=== PATIENT | female | born 1945 | race Caucasian/White ===

== ENCOUNTER → 2017-06-01 | Outpatient (CLI) | payer MEDICARE, MEDICAID ==
[~2017-06-01] MED LIST: ALPHAGAN P EACHEYE; AMLO5TAB2 PO; ASPI-496 PO; ATOR10TA9 PO; BAYER ASPIRIN PO; BENA10TA2 PO; BENA20TA2 PO; BRIM5DRO3 EACHEYE; CHOL500015 PO; CLOP75TA PO; CLOP75TA52 PO; SITA100T PO; Will bring list DOS; [UNRECOGNIZED DRUG - OTHER] PO; will bring a list
== END | disposition home or self-care (01) ==
LOC: CFH 12:49
PROVIDERS: ATTEND Internal Medicine Nephrology
DX: I12.9 Hypertensive chronic kidney disease with stage 1 through stage 4 chronic kidney disease, or unspecified chronic kidney disease (principal); E11.22 Type 2 diabetes mellitus with diabetic chronic kidney disease; N18.3 Chronic kidney disease, stage 3 (moderate)
CPT/HCPCS: 76770

== ENCOUNTER → 2017-06-02 | Outpatient (CLI) | payer MEDICARE, MEDICAID | END | disposition home or self-care (01) | LOC: CVU 12:26 | PROVIDERS: ATTEND Nurse Practitioner Family | DX: I73.9 Peripheral vascular disease, unspecified (principal); I65.22 Occlusion and stenosis of left carotid artery | CPT/HCPCS: 93880 ==

== ENCOUNTER → 2017-06-06 | Outpatient (CLI) | payer MEDICARE, MEDICAID | END | disposition home or self-care (01) | LOC: CVU 06:34 | PROVIDERS: ATTEND Nurse Practitioner Family | DX: I70.203 Unspecified atherosclerosis of native arteries of extremities, bilateral legs (principal); E11.51 Type 2 diabetes mellitus with diabetic peripheral angiopathy without gangrene; I10 Essential (primary) hypertension; E78.5 Hyperlipidemia, unspecified; Z86.73 Personal history of transient ischemic attack (TIA), and cerebral infarction without residual deficits | CPT/HCPCS: 93925 ==

== ENCOUNTER 2017-06-30 09:22 | Day surgery (SDC) | payer MEDICARE, MEDICAID ==
[2017-06-27 12:04] LABS: BASOPHILS # (AUTO) 0.04 x10^3/uL (0-0.1); BASOPHILS % (AUTO) 1 % (0-1); EOSINOPHILS # (AUTO) 0.35 x10^3/uL (0-0.4); EOSINOPHILS % (AUTO) 4 % (1-7); LYMPHOCYTES % (AUTO) 16 % (22-44); MD NO; MEAN CORPUSCULAR HEMOGLOBIN 28.2 pg (27.0-34.8); MEAN CORPUSCULAR HGB CONC 32.8 g/dL (32.4-35.8); MEAN CORPUSCULAR VOLUME 85.9 fL (80-100); MEAN PLATELET VOLUME 9.6 fL (7.4-10.4); MONOCYTES # (AUTO) 0.64 x10^3/uL (0.2-0.8); MONOCYTES % (AUTO) 7 % (2-9); NEUTROPHILS % (AUTO) 73 % (42-75); PLATELET COUNT 388 x10^3/uL (130-400); RED BLOOD COUNT 4.63 x10^6/uL (3.82-5.3); RED CELL DISTRIBUTION WIDTH 14.7 % (9.6-15.2)
[2017-06-27 12:08] LABS: CALCIUM 9.1 mg/dL (8.5-10.1); CHLORIDE 106 mmol/L (98-107)
[2017-06-27 12:12] LABS: ANION GAP 9 mmol/L (5-15)
[~2017-06-30] VITALS: Ht 160 cm; Wt 62.9 kg
[~2017-06-30 09:22] MED LIST changes: +DIAZ5TAB PO; +FAMO10TA10 PO; +GLYB5TAB3 PO; +LINA5TAB PO
[2017-06-30 10:21] VITALS: BP 133/71
[2017-06-30] MEDS ORDERED: SODIUM CHLORIDE 0.9% 1,000 ML IV SCH (10:30)
[2017-06-30] MEDS ORDERED: LIDOCAINE 2%, 20ML ONE (11:11)
[2017-06-30] MEDS ORDERED: FENTANYL PF 100 MCG/2ML ONE ×2 (11:19)
[2017-06-30] MEDS ORDERED: MIDAZOLAM 1 MG/ML, 2ML ONE (11:19)
[2017-06-30] MEDS ORDERED: FLUMAZENIL 0.1 MG/1 ML, 5ML ONE (11:19)
[2017-06-30] MEDS ORDERED: HEPARIN 1,000 UNITS/ML, 10ML ONE (11:19)
[2017-06-30] MEDS ORDERED: NITROGLYCERIN 5 MG/ML, 10ML ONE (11:19)
[2017-06-30] MEDS ORDERED: NALOXONE 1 MG/ML, 2ML ONE (11:20)
[2017-06-30] MEDS ORDERED: PROTAMINE SULFATE 10 MG/ML, 25ML ONE (11:20)
[2017-06-30] MEDS ORDERED: VISIPAQUE 270 MG/ML, 150ML BOTTLE ONE (12:00)
== END 2017-06-30 15:20 ==
LOC: OUT 09:22
PROVIDERS: ATTEND Internal Medicine Cardiovascular Disease
DX: I70.213 Atherosclerosis of native arteries of extremities with intermittent claudication, bilateral legs (principal); E78.5 Hyperlipidemia, unspecified; E11.9 Type 2 diabetes mellitus without complications; Z79.82 Long term (current) use of aspirin; I10 Essential (primary) hypertension; Z88.6 Allergy status to analgesic agent
CPT/HCPCS: 36415; 37225; 75630; 80048; 82962; 85025; 99156; 99157; C1760; C1769; C1884; C1894; C2623; J1644; J2250; J3010; J3490; J7030; Q9966; J2720; J2310

== ENCOUNTER 2017-07-01 16:13 | Emergency (ER) | payer MEDICARE, MEDICAID ==
[~2017-07-01] VITALS: Ht 157.5 cm; Wt 63.6 kg
[2017-07-01 16:49] LABS: INTERNATIONAL NORMALIZED RATIO 0.93 (0.93-1.1); PROTHROMBIN TIME 9.6 Seconds (9.6-11.5)
[2017-07-01 16:53] LABS: ALANINE AMINOTRANSFERASE 15 U/L (12-78); ALBUMIN 3.4 g/dL (3.4-5.0); ANION GAP 9 mmol/L (5-15); CALCIUM 8.5 mg/dL (8.5-10.1); CHLORIDE 109 mmol/L (98-107); CREATININE 1.27 mg/dL (0.55-1.02)
[2017-07-01 16:55] LABS: ALKALINE PHOSPHATASE 96 U/L (45-117); BILIRUBIN,TOTAL 0.2 mg/dL (0.2-1.0); TOTAL PROTEIN 7.3 g/dL (6.4-8.2)
[2017-07-01 17:03] LABS: BASOPHILS # (AUTO) 0.05 x10^3/uL (0-0.1); BASOPHILS % (AUTO) 1 % (0-1); EOSINOPHILS # (AUTO) 0.42 x10^3/uL (0-0.4); EOSINOPHILS % (AUTO) 5 % (1-7); LYMPHOCYTES # (AUTO) 2.07 x10^3/uL (1-3.4); LYMPHOCYTES % (AUTO) 23 % (22-44); MD NO; MEAN CORPUSCULAR HEMOGLOBIN 27.9 pg (27.0-34.8); MEAN CORPUSCULAR HGB CONC 32.8 g/dL (32.4-35.8); MEAN PLATELET VOLUME 9.3 fL (7.4-10.4); MONOCYTES # (AUTO) 0.67 x10^3/uL (0.2-0.8); MONOCYTES % (AUTO) 7 % (2-9); NEUTROPHILS % (AUTO) 65 % (42-75); PLATELET COUNT 347 x10^3/uL (130-400); RED BLOOD COUNT 4.21 x10^6/uL (3.82-5.3); RED CELL DISTRIBUTION WIDTH 14.8 % (9.6-15.2)
[2017-07-01 19:18] VITALS: BP 105/57
== END 2017-07-01 19:20 | disposition home or self-care (01) ==
LOC: ED 18:14
DX: I73.9 Peripheral vascular disease, unspecified (principal)
CPT/HCPCS: 36415; 80053; 85025; 85610; 93922; 99285

== ENCOUNTER 2017-07-28 10:05 | Day surgery (SDC) | payer MEDICARE, MEDICAID ==
[2017-07-26 11:46] LABS: BASOPHILS # (AUTO) 0.04 x10^3/uL (0-0.1); BASOPHILS % (AUTO) 1 % (0-1); EOSINOPHILS # (AUTO) 0.25 x10^3/uL (0-0.4); EOSINOPHILS % (AUTO) 3 % (1-7); LYMPHOCYTES # (AUTO) 1.78 x10^3/uL (1-3.4); LYMPHOCYTES % (AUTO) 23 % (22-44); MD NO; MEAN CORPUSCULAR HEMOGLOBIN 28.6 pg (27.0-34.8); MEAN CORPUSCULAR HGB CONC 33.1 g/dL (32.4-35.8); MEAN CORPUSCULAR VOLUME 86.5 fL (80-100); MEAN PLATELET VOLUME 8.9 fL (7.4-10.4); MONOCYTES # (AUTO) 0.48 x10^3/uL (0.2-0.8); MONOCYTES % (AUTO) 6 % (2-9); NEUTROPHILS # (AUTO) 5.18 x10^3/uL (1.8-6.8); NEUTROPHILS % (AUTO) 67 % (42-75); PLATELET COUNT 380 x10^3/uL (130-400); RED BLOOD COUNT 4.35 x10^6/uL (3.82-5.3); RED CELL DISTRIBUTION WIDTH 15.2 % (9.6-15.2)
[2017-07-26 11:59] LABS: ANION GAP 7 mmol/L (5-15); CHLORIDE 107 mmol/L (98-107); CREATININE 1.36 mg/dL (0.55-1.02)
[~2017-07-28] VITALS: Ht 157.5 cm; Wt 64.4 kg
[2017-07-28] MEDS ORDERED: SODIUM CHLORIDE 0.9% 1,000 ML IV SCH (10:32)
[2017-07-28 11:08] VITALS: BP 145/75
[2017-07-28] MEDS ORDERED: LIDOCAINE 2%, 20ML ONE (12:16)
[2017-07-28] MEDS ORDERED: VISIPAQUE 270 MG/ML, 50ML BOTTLE ONE (12:30)
[2017-07-28] MEDS ORDERED: NITROGLYCERIN 5 MG/ML, 10ML ONE (12:41)
[2017-07-28] MEDS ORDERED: NALOXONE 1 MG/ML, 2ML ONE (12:41)
[2017-07-28] MEDS ORDERED: HEPARIN 1,000 UNITS/ML, 10ML ONE (12:41)
[2017-07-28] MEDS ORDERED: PROTAMINE SULFATE 10 MG/ML, 25ML ONE (12:41)
[2017-07-28] MEDS ORDERED: FENTANYL PF 100 MCG/2ML ONE (12:41)
[2017-07-28] MEDS ORDERED: MIDAZOLAM 1 MG/ML, 5ML ONE (12:41)
[2017-07-28] MEDS ORDERED: FLUMAZENIL 0.1 MG/1 ML, 5ML ONE (12:41)
[2017-07-28] MEDS ORDERED: hydrALAzine 20 MG/ML, 1ML ONE (13:33)
== END 2017-07-28 17:00 ==
LOC: OUT 10:05
PROVIDERS: ATTEND Internal Medicine Cardiovascular Disease
DX: I70.213 Atherosclerosis of native arteries of extremities with intermittent claudication, bilateral legs (principal); E78.5 Hyperlipidemia, unspecified; E11.9 Type 2 diabetes mellitus without complications; Z88.5 Allergy status to narcotic agent; Z79.82 Long term (current) use of aspirin
CPT/HCPCS: 36415; 37225; 75710; 80048; 82962; 85025; 99156; 99157; C1714; C1760; C1769; C1884; C1894; C2623; J0360; J1644; J2250; J3010; J3490; J7030; Q9966; J2720; J2310

== ENCOUNTER 2017-08-24 08:37 | Emergency (ER) | payer MEDICARE, MEDICAID ==
[~2017-08-24] VITALS: Ht 160 cm; Wt 62.3 kg
[2017-08-24 10:59] VITALS: BP 154/68
== END 2017-08-24 12:06 | disposition home or self-care (01) ==
LOC: ED 11:15
DX: S16.1XXA Strain of muscle, fascia and tendon at neck level, initial encounter (principal); S00.83XA Contusion of other part of head, initial encounter; S00.33XA Contusion of nose, initial encounter; S00.11XA Contusion of right eyelid and periocular area, initial encounter; W01.0XXA Fall on same level from slipping, tripping and stumbling without subsequent striking against object, initial encounter; I10 Essential (primary) hypertension; Z85.9 Personal history of malignant neoplasm, unspecified; I73.9 Peripheral vascular disease, unspecified; Y93.89 Activity, other specified; Y92.098 Other place in other non-institutional residence as the place of occurrence of the external cause; Y99.8 Other external cause status
CPT/HCPCS: 70450; 70486; 72125; 99284

== ENCOUNTER → 2018-01-04 | Outpatient (CLI) | payer MEDICARE, MEDICAID ==
[~2018-01-04] MED LIST changes: -BENA10TA2 PO; +BENA10TA4 PO; -BENA20TA2 PO; +BENA20TA4 PO
== END | disposition home or self-care (01) ==
LOC: RAD 09:45
PROVIDERS: ATTEND Physician Assistant Medical
DX: I63.9 Cerebral infarction, unspecified (principal); G31.9 Degenerative disease of nervous system, unspecified; I67.82 Cerebral ischemia; R90.82 White matter disease, unspecified; Z88.5 Allergy status to narcotic agent
CPT/HCPCS: 70551

== ENCOUNTER 2018-01-16 02:34 | Inpatient (IN) | payer MEDICARE, MEDICAID ==
[~2018-01-16] VITALS: Ht 157.5 cm; Wt 63.9 kg
[~2018-01-16 02:34] MED LIST changes: -AMLO5TAB2 PO; +AMLO5TAB7 PO
[2018-01-16] MEDS ORDERED: ATOR40TA PO (03:04)
[2018-01-16] MEDS ORDERED: ALBUTEROL SULFATE 2.5 MG/3 ML ONE (03:22)
[2018-01-16] MEDS ORDERED: SODIUM CHLORIDE FLUSH 10ML SYR IVF ONE (03:30)
[2018-01-16] MEDS ORDERED: ALBUTEROL SULFATE 2.5 MG/3 ML NPPB ONE (03:30)
[2018-01-16 03:31] LABS: MEAN CORPUSCULAR HEMOGLOBIN 28.1 pg (27.0-34.8); MEAN CORPUSCULAR HGB CONC 33.5 g/dL (32.4-35.8); MEAN CORPUSCULAR VOLUME 83.9 fL (80-100); MEAN PLATELET VOLUME 8.8 fL (7.4-10.4); PLATELET COUNT 381 x10^3/uL (130-400); RED BLOOD COUNT 4.51 x10^6/uL (3.82-5.3); RED CELL DISTRIBUTION WIDTH 15.4 % (9.6-15.2)
[2018-01-16 03:42] LABS: ALANINE AMINOTRANSFERASE 19 U/L (12-78); ALBUMIN 3.7 g/dL (3.4-5.0); ANION GAP 6 mmol/L (5-15); CALCIUM 9.2 mg/dL (8.5-10.1); CHLORIDE 104 mmol/L (98-107); CREATININE 1.81 mg/dL (0.55-1.02)
[2018-01-16 03:47] LABS: ALKALINE PHOSPHATASE 118 U/L (45-117); BILIRUBIN,TOTAL 0.4 mg/dL (0.2-1.0); TROPONIN I < 0.015 ng/mL (0.000-0.045)
[2018-01-16 03:59] LABS: MD YES
[2018-01-16] MEDS ORDERED: SODIUM CHLORIDE 0.9% 1,000ML IVBOLUS ONE (04:00)
[2018-01-16 04:02] LABS: <PLATELET ESTIMATE> ADEQUATE; <PLT MORPHOLOGY> NORMAL PLT MORPH; <RBC MORPHOLOGY> NORMAL; BAND#(MANUAL) 0.23 x10^3/uL; BANDS%(MANUAL) 1 % (0-7); EOS#(MANUAL) 0.46 x10^3/uL (0.0-0.4); EOS% (MANUAL) 2 % (1-7); LYMPH#(MANUAL) 0.69 x10^3/uL (1-3.4); LYMPHS% (MANUAL) 3 % (22-44); MONOS#(MANUAL) 0.92 x10^3/uL (0.3-2.7); MONOS% (MANUAL) 4 % (2-9); SEG#(MANUAL) 20.61 x10^3/uL (1.8-6.8); SEGS% (MANUAL) 90 % (42-75)
[2018-01-16] MEDS ORDERED: MORPHINE SULFATE 4 MG/ML, 1ML ONE (04:15)
[2018-01-16] MEDS ORDERED: morphine SULFATE 10 MG/ML, 1ML IVPush ONE (04:30)
[2018-01-16] MEDS ORDERED: AMPICILLIN/SULBACTAM 1,500 MG in SODIUM CHLORIDE 0.9% 50 ML IV SCH (04:30)
[2018-01-16] MEDS: SODIUM CHLORIDE 0.9% 1,000 ML IV SCH ×2 (05:34→08:24)
[2018-01-16 05:35] VITALS: BP 121/61
[2018-01-16 05:38] VITALS: BP 121/61
[2018-01-16 05:40] LABS: MICROSCOPIC AUTO
[2018-01-16 05:41] LABS: CULTURE INDICATED? NO
[2018-01-16] MEDS ORDERED: PROMETHAZINE 25 MG/ML, 1ML IM PRN (06:00)
[2018-01-16] MEDS ORDERED: BISACODYL 10 MG SUPP PR PRN (06:00)
[2018-01-16] MEDS ORDERED: ONDANSETRON 2MG/ML, 2ML IVPush PRN (06:00)
[2018-01-16] MEDS ORDERED: hydrALAzine 20 MG/ML, 1ML IVPush PRN (06:00)
[2018-01-16] MEDS ORDERED: DOCUSATE 100 MG CAPSULE PO PRN (06:00)
[2018-01-16] MEDS ORDERED: OXYcodone IR 5MG TABLET PO PRN (06:00)
[2018-01-16] MEDS ORDERED: ACETAMINOPHEN 325 MG TABLET PO PRN (06:00)
[2018-01-16] MEDS ORDERED: POLYETHYLENE GLYCOL 17 GM PACKET PO PRN (06:00)
[2018-01-16] MEDS ORDERED: ONDANSETRON ODT 4 MG PO PRN (06:00)
[2018-01-16 06:23] LABS: TROPONIN I < 0.015 ng/mL (0.000-0.045)
[2018-01-16 06:45] VITALS: BP 106/54
[2018-01-16] MEDS: BRIMONIDINE TARTRATE OPHTH 0.15%, 5ML EACHEYE SCH (09:00)
[2018-01-16] MEDS: BENAZEPRIL 20 MG TABLET PO SCH (09:00)
[2018-01-16] MEDS: AMLODIPINE 5 MG TABLET PO SCH (09:00)
[2018-01-16 09:04] LABS: MICROSCOPIC NOT IND
[2018-01-16 09:06] LABS: CULTURE INDICATED? NO
[2018-01-16] MEDS: HEPARIN 5,000 UNITS/ML, 1ML SQ SCH ×2 (09:45→17:11)
[2018-01-16 12:19] LABS: TROPONIN I < 0.015 ng/mL (0.000-0.045)
[2018-01-16] MEDS: AMPICILLIN/SULBACTAM 1,500 MG in SODIUM CHLORIDE 0.9% 50 ML IV SCH ×3 (12:46→22:58)
[2018-01-16 13:37] VITALS: BP 110/47
[2018-01-16] MEDS: GABAPENTIN 300 MG CAPSULE PO PRN (14:24)
[2018-01-16] MEDS: CHOLECALCIFEROL 5,000u TAB PO SCH (14:25)
[2018-01-16] MEDS: ASPIRIN 81 MG TABLET CHEW PO SCH (14:25)
[2018-01-16] MEDS: CLOPIDOGREL 75 MG TABLET PO SCH (14:25)
[2018-01-16] MEDS: LINAGLIPTIN 5 MG TAB PO SCH (14:25)
[2018-01-16 18:48] VITALS: BP 112/64
[2018-01-16] MEDS: ATORVASTATIN 40 MG TABLET PO SCH (20:52)
[2018-01-17] MEDS ORDERED: LORazepam 2 MG/ML, 1ML IVPush PRN (00:40)
[2018-01-17] MEDS ORDERED: LORazepam 0.5MG TABLET ONE (00:41)
[2018-01-17] MEDS: LORazepam 0.5MG TABLET PO PRN ×3 (00:42→20:35)
[2018-01-17 01:21] VITALS: BP 133/78
[2018-01-17] MEDS: HEPARIN 5,000 UNITS/ML, 1ML SQ SCH ×3 (02:05→17:33)
[2018-01-17 05:03] LABS: BASOPHILS # (AUTO) 0.03 x10^3/uL (0-0.1); BASOPHILS % (AUTO) 0 % (0-1); EOSINOPHILS % (AUTO) 1 % (1-7); LYMPHOCYTES # (AUTO) 1.32 x10^3/uL (1-3.4); LYMPHOCYTES % (AUTO) 11 % (22-44); MD NO; MEAN CORPUSCULAR HEMOGLOBIN 27.4 pg (27.0-34.8); MEAN CORPUSCULAR HGB CONC 32.5 g/dL (32.4-35.8); MEAN CORPUSCULAR VOLUME 84.4 fL (80-100); MEAN PLATELET VOLUME 8.8 fL (7.4-10.4); MONOCYTES % (AUTO) 9 % (2-9); NEUTROPHILS # (AUTO) 9.57 x10^3/uL (1.8-6.8); NEUTROPHILS % (AUTO) 79 % (42-75); PLATELET COUNT 265 x10^3/uL (130-400); RED BLOOD COUNT 4.01 x10^6/uL (3.82-5.3); RED CELL DISTRIBUTION WIDTH 15.2 % (9.6-15.2)
[2018-01-17] MEDS: AMPICILLIN/SULBACTAM 1,500 MG in SODIUM CHLORIDE 0.9% 50 ML IV SCH ×3 (05:17→18:33)
[2018-01-17 05:18] LABS: ALBUMIN 3.1 g/dL (3.4-5.0); CALCIUM 8.3 mg/dL (8.5-10.1); CHLORIDE 106 mmol/L (98-107)
[2018-01-17 05:22] LABS: ALANINE AMINOTRANSFERASE 18 U/L (12-78); ALKALINE PHOSPHATASE 104 U/L (45-117); ANION GAP 9 mmol/L (5-15); BILIRUBIN,TOTAL 0.5 mg/dL (0.2-1.0); CHOL/HDL RATIO 3.5; CHOLESTEROL, TOTAL 129 mg/dL (140-239); CREATININE 1.21 mg/dL (0.55-1.02); HDL CHOL % 29 % (28-40); HDL CHOLESTEROL (DIRECT) 37 mg/dL (40-60); LDL CHOLESTEROL,CALCULATED 66 mg/dL (54-169); LDL/HDL RATIO 1.8 (0.5-3.0); TOTAL PROTEIN 7.1 g/dL (6.4-8.2); TRIGLYCERIDES 131 mg/dL (50-200); VLDL CHOLESTEROL 26 mg/dL (0-25)
[2018-01-17 07:16] VITALS: BP 105/49
[2018-01-17] MEDS: GABAPENTIN 300 MG CAPSULE PO PRN ×2 (08:13→08:16)
[2018-01-17] MEDS: ASPIRIN 81 MG TABLET CHEW PO SCH (08:15)
[2018-01-17] MEDS: LINAGLIPTIN 5 MG TAB PO SCH (08:15)
[2018-01-17] MEDS: CHOLECALCIFEROL 5,000u TAB PO SCH (08:15)
[2018-01-17] MEDS: CLOPIDOGREL 75 MG TABLET PO SCH (08:15)
[2018-01-17] MEDS: BRIMONIDINE TARTRATE OPHTH 0.15%, 5ML EACHEYE SCH (09:00)
[2018-01-17] MEDS: KETOROLAC 30 MG/1 ML IVPush PRN ×2 (11:27→11:35)
[2018-01-17] MEDS: BENAZEPRIL 20 MG TABLET PO SCH (11:27)
[2018-01-17] MEDS: AMLODIPINE 5 MG TABLET PO SCH (11:27)
[2018-01-17 13:23] VITALS: BP 109/44
[2018-01-17] MEDS: morphine SULFATE 10 MG/ML, 1ML IVPush PRN ×3 (15:50→23:21)
[2018-01-17 18:46] VITALS: BP 136/66
[2018-01-17] MEDS: ATORVASTATIN 40 MG TABLET PO SCH (20:34)
[2018-01-18] MEDS: AMPICILLIN/SULBACTAM 1,500 MG in SODIUM CHLORIDE 0.9% 50 ML IV SCH ×3 (00:05→12:02)
[2018-01-18 01:48] VITALS: BP 130/55
[2018-01-18] MEDS: HEPARIN 5,000 UNITS/ML, 1ML SQ SCH ×3 (02:04→18:27)
[2018-01-18 06:18] LABS: MEAN CORPUSCULAR HEMOGLOBIN 28.2 pg (27.0-34.8); MEAN CORPUSCULAR VOLUME 85.4 fL (80-100); MEAN PLATELET VOLUME 9.4 fL (7.4-10.4); PLATELET COUNT 240 x10^3/uL (130-400); RED BLOOD COUNT 3.91 x10^6/uL (3.82-5.3); RED CELL DISTRIBUTION WIDTH 15.6 % (9.6-15.2)
[2018-01-18 06:22] LABS: ANION GAP 7 mmol/L (5-15); CALCIUM 8.3 mg/dL (8.5-10.1); CHLORIDE 111 mmol/L (98-107); CREATININE 1.35 mg/dL (0.55-1.02)
[2018-01-18 06:38] LABS: MD YES
[2018-01-18 06:40] LABS: <PLATELET ESTIMATE> ADEQUATE; <PLT MORPHOLOGY> NORMAL PLT MORPH; <RBC MORPHOLOGY> NORMAL; BAND#(MANUAL) 2.71 x10^3/uL; BANDS%(MANUAL) 11 % (0-7); LYMPH#(MANUAL) 1.23 x10^3/uL (1-3.4); LYMPHS% (MANUAL) 5 % (22-44); MONOS#(MANUAL) 1.23 x10^3/uL (0.3-2.7); MONOS% (MANUAL) 5 % (2-9); SEG#(MANUAL) 19.43 x10^3/uL (1.8-6.8); SEGS% (MANUAL) 79 % (42-75); TOXIC GRAN 1+
[2018-01-18 07:52] VITALS: BP 103/52
[2018-01-18] MEDS: CHOLECALCIFEROL 5,000u TAB PO SCH (08:41)
[2018-01-18] MEDS: LORazepam 0.5MG TABLET PO PRN ×2 (08:41→20:18)
[2018-01-18] MEDS: ASPIRIN 81 MG TABLET CHEW PO SCH (08:41)
[2018-01-18] MEDS: BRIMONIDINE TARTRATE OPHTH 0.15%, 5ML EACHEYE SCH (08:41)
[2018-01-18] MEDS: CLOPIDOGREL 75 MG TABLET PO SCH (08:41)
[2018-01-18] MEDS: BENAZEPRIL 20 MG TABLET PO SCH (08:42)
[2018-01-18] MEDS: AMLODIPINE 5 MG TABLET PO SCH (08:42)
[2018-01-18] MEDS: INSULIN LISPRO 100 UNITS/ML, PEN SQ-INSULIN SCH ×3 (12:01→21:00)
[2018-01-18 12:47] VITALS: BP 97/46
[2018-01-18] MEDS: morphine SULFATE 10 MG/ML, 1ML IVPush PRN ×2 (14:48→20:55)
[2018-01-18] MEDS: PIPERACILLIN/TAZO/PMX 3.375GM 50 ML IV SCH ×2 (15:31→22:04)
[2018-01-18 19:30] VITALS: BP 96/75
[2018-01-18] MEDS: ATORVASTATIN 40 MG TABLET PO SCH (20:18)
[2018-01-19] MEDS: HEPARIN 5,000 UNITS/ML, 1ML SQ SCH ×3 (02:00→18:00)
[2018-01-19 02:28] VITALS: BP 136/75
[2018-01-19] MEDS: PIPERACILLIN/TAZO/PMX 3.375GM 50 ML IV SCH ×4 (05:01→22:34)
[2018-01-19] MEDS: morphine SULFATE 10 MG/ML, 1ML IVPush PRN (05:11)
[2018-01-19] MEDS: INSULIN LISPRO 100 UNITS/ML, PEN SQ-INSULIN SCH ×4 (07:00→21:00)
[2018-01-19 08:22] LABS: ANION GAP 8 mmol/L (5-15); CALCIUM 8.3 mg/dL (8.5-10.1); CHLORIDE 109 mmol/L (98-107); CREATININE 1.49 mg/dL (0.55-1.02)
[2018-01-19 08:24] LABS: BASOPHILS # (AUTO) 0.01 x10^3/uL (0-0.1); BASOPHILS % (AUTO) 0 % (0-1); EOSINOPHILS # (AUTO) 0.26 x10^3/uL (0-0.4); EOSINOPHILS % (AUTO) 2 % (1-7); LYMPHOCYTES # (AUTO) 1.22 x10^3/uL (1-3.4); LYMPHOCYTES % (AUTO) 7 % (22-44); MD SCAN; MEAN CORPUSCULAR HEMOGLOBIN 28.3 pg (27.0-34.8); MEAN CORPUSCULAR HGB CONC 33.3 g/dL (32.4-35.8); MEAN CORPUSCULAR VOLUME 85.2 fL (80-100); MEAN PLATELET VOLUME 9.1 fL (7.4-10.4); MONOCYTES # (AUTO) 0.98 x10^3/uL (0.2-0.8); MONOCYTES % (AUTO) 5 % (2-9); NEUTROPHILS % (AUTO) 86 % (42-75); PLATELET COUNT 245 x10^3/uL (130-400); RED BLOOD COUNT 3.41 x10^6/uL (3.82-5.3); RED CELL DISTRIBUTION WIDTH 15.4 % (9.6-15.2)
[2018-01-19 09:37] VITALS: BP 128/61
[2018-01-19] MEDS: ASPIRIN 81 MG TABLET CHEW PO SCH (09:41)
[2018-01-19] MEDS: CLOPIDOGREL 75 MG TABLET PO SCH (09:41)
[2018-01-19] MEDS: CHOLECALCIFEROL 5,000u TAB PO SCH (09:42)
[2018-01-19] MEDS: LORazepam 0.5MG TABLET PO PRN (09:42)
[2018-01-19] MEDS: AMLODIPINE 5 MG TABLET PO SCH (09:42)
[2018-01-19] MEDS: BENAZEPRIL 20 MG TABLET PO SCH (09:42)
[2018-01-19] MEDS: BRIMONIDINE TARTRATE OPHTH 0.15%, 5ML EACHEYE SCH (09:43)
[2018-01-19] MEDS ORDERED: SODIUM CHLORIDE 0.9% 1,000 ML IV SCH (13:30)
[2018-01-19 13:55] VITALS: BP 104/63
[2018-01-19] MEDS ORDERED: ALBUTEROL SULFATE 2.5 MG/3 ML NPPB PRN (17:00)
[2018-01-19 17:41] LABS: HEMOGLOBIN A1C 6.8 % (4.2-6.3)
[2018-01-19 19:11] VITALS: BP_SYST 101; BP_SYST 86; BP_DIAS 54; BP_DIAS 57
[2018-01-19] MEDS: GUAIFENESIN ER 600 MG TABLET PO SCH (21:08)
[2018-01-19] MEDS: ATORVASTATIN 40 MG TABLET PO SCH (21:08)
[2018-01-20] MEDS: HEPARIN 5,000 UNITS/ML, 1ML SQ SCH ×3 (02:43→18:00)
[2018-01-20 02:50] VITALS: BP 110/61
[2018-01-20] MEDS: PIPERACILLIN/TAZO/PMX 3.375GM 50 ML IV SCH ×4 (03:37→23:09)
[2018-01-20 05:20] LABS: BASOPHILS # (AUTO) 0.02 x10^3/uL (0-0.1); BASOPHILS % (AUTO) 0 % (0-1); EOSINOPHILS # (AUTO) 0.27 x10^3/uL (0-0.4); EOSINOPHILS % (AUTO) 2 % (1-7); LYMPHOCYTES % (AUTO) 7 % (22-44); MD NO; MEAN CORPUSCULAR HEMOGLOBIN 27.8 pg (27.0-34.8); MEAN CORPUSCULAR HGB CONC 32.5 g/dL (32.4-35.8); MEAN CORPUSCULAR VOLUME 85.5 fL (80-100); MEAN PLATELET VOLUME 9.2 fL (7.4-10.4); MONOCYTES # (AUTO) 1.04 x10^3/uL (0.2-0.8); MONOCYTES % (AUTO) 7 % (2-9); NEUTROPHILS # (AUTO) 13.14 x10^3/uL (1.8-6.8); NEUTROPHILS % (AUTO) 85 % (42-75); PLATELET COUNT 247 x10^3/uL (130-400); RED BLOOD COUNT 3.34 x10^6/uL (3.82-5.3); RED CELL DISTRIBUTION WIDTH 15.2 % (9.6-15.2)
[2018-01-20 05:30] LABS: ANION GAP 7 mmol/L (5-15); CALCIUM 8.4 mg/dL (8.5-10.1); CHLORIDE 108 mmol/L (98-107); CREATININE 1.31 mg/dL (0.55-1.02)
[2018-01-20] MEDS: INSULIN LISPRO 100 UNITS/ML, PEN SQ-INSULIN SCH ×4 (07:00→21:00)
[2018-01-20 07:26] VITALS: BP 96/58
[2018-01-20] MEDS: CLOPIDOGREL 75 MG TABLET PO SCH (08:51)
[2018-01-20] MEDS: GUAIFENESIN ER 600 MG TABLET PO SCH ×2 (08:51→21:00)
[2018-01-20] MEDS: CHOLECALCIFEROL 5,000u TAB PO SCH (08:51)
[2018-01-20] MEDS: AMLODIPINE 5 MG TABLET PO SCH (08:52)
[2018-01-20] MEDS: BENAZEPRIL 20 MG TABLET PO SCH (08:52)
[2018-01-20] MEDS: ASPIRIN 81 MG TABLET CHEW PO SCH (08:52)
[2018-01-20] MEDS: BRIMONIDINE TARTRATE OPHTH 0.15%, 5ML EACHEYE SCH (09:00)
[2018-01-20] MEDS ORDERED: SODIUM CHLORIDE 0.9%, 500ML IVBOLUS ONE (10:00)
[2018-01-20 13:09] VITALS: BP 121/66
[2018-01-20] MEDS ORDERED: DEXTROSE 50%, 50ML SYRINGE ONE (15:51)
[2018-01-20] MEDS ORDERED: DEXTROSE 50%, 50ML SYRINGE IVPush ONE (16:00)
[2018-01-20] MEDS ORDERED: ZIPRASIDONE 20 MG INJ IM ONE ×2 (19:17→19:30)
[2018-01-20] MEDS ORDERED: DEXTROSE 4 GM TAB.CHEW PO PRN (20:00)
[2018-01-20] MEDS ORDERED: DEXTROSE 50%, 50ML SYRINGE IVPush PRN (20:00)
[2018-01-20] MEDS ORDERED: GLUCAGON 1 MG IM PRN (20:00)
[2018-01-20] MEDS: SODIUM CHLORIDE FLUSH 10ML SYR IVF SCH (21:00)
[2018-01-20] MEDS: ATORVASTATIN 40 MG TABLET PO SCH (21:00)
[2018-01-20] MEDS: DEXTROSE 10% 1,000 ML IV SCH (21:23)
[2018-01-20 21:31] VITALS: BP 118/68
[2018-01-20] MEDS ORDERED: ACETAMINOPHEN 325 MG TABLET PO PRN (22:00)
[2018-01-20] MEDS: DIAZEPAM 5 MG/ML, 2ML IV PRN (23:44)
[2018-01-21] MEDS: HEPARIN 5,000 UNITS/ML, 1ML SQ SCH ×3 (01:58→17:17)
[2018-01-21] MEDS: PIPERACILLIN/TAZO/PMX 3.375GM 50 ML IV SCH ×4 (04:54→23:36)
[2018-01-21 06:58] VITALS: BP 92/54
[2018-01-21] MEDS: INSULIN LISPRO 100 UNITS/ML, PEN SQ-INSULIN SCH ×4 (07:00→21:00)
[2018-01-21] MEDS: ASPIRIN 81 MG TABLET CHEW PO SCH ×2 (09:00→10:49)
[2018-01-21] MEDS: AMLODIPINE 5 MG TABLET PO SCH ×2 (09:00→10:49)
[2018-01-21] MEDS: BRIMONIDINE TARTRATE OPHTH 0.15%, 5ML EACHEYE SCH (09:00)
[2018-01-21] MEDS: CLOPIDOGREL 75 MG TABLET PO SCH ×2 (09:00→10:49)
[2018-01-21] MEDS: CHOLECALCIFEROL 5,000u TAB PO SCH ×2 (09:00→10:49)
[2018-01-21] MEDS: BENAZEPRIL 20 MG TABLET PO SCH ×2 (09:00→10:49)
[2018-01-21] MEDS: DEXTROSE 10% 1,000 ML IV SCH ×2 (10:00→23:36)
[2018-01-21] MEDS: DIAZEPAM 5 MG/ML, 2ML IV PRN ×2 (10:46→17:16)
[2018-01-21] MEDS: GUAIFENESIN ER 600 MG TABLET PO SCH ×2 (10:49→21:00)
[2018-01-21] MEDS: SODIUM CHLORIDE FLUSH 10ML SYR IVF SCH ×2 (10:51→21:00)
[2018-01-21] MEDS: LINEZOLID PMX 600MG/300ML 300 ML IV SCH (12:01)
[2018-01-21 14:08] VITALS: BP 105/62
[2018-01-21 20:29] VITALS: BP 118/68
[2018-01-21] MEDS: ATORVASTATIN 40 MG TABLET PO SCH (21:00)
[2018-01-22] MEDS: LINEZOLID PMX 600MG/300ML 300 ML IV SCH ×2 (00:57→12:48)
[2018-01-22] MEDS: HEPARIN 5,000 UNITS/ML, 1ML SQ SCH ×3 (02:00→17:12)
[2018-01-22 02:47] VITALS: BP 100/60
[2018-01-22] MEDS: PIPERACILLIN/TAZO/PMX 3.375GM 50 ML IV SCH ×4 (05:45→23:47)
[2018-01-22 06:50] VITALS: BP 103/57
[2018-01-22] MEDS: BRIMONIDINE TARTRATE OPHTH 0.15%, 5ML EACHEYE SCH (09:00)
[2018-01-22] MEDS: SODIUM CHLORIDE FLUSH 10ML SYR IVF SCH ×2 (09:00→21:10)
[2018-01-22] MEDS: BENAZEPRIL 20 MG TABLET PO SCH (09:11)
[2018-01-22] MEDS: AMLODIPINE 5 MG TABLET PO SCH (09:12)
[2018-01-22] MEDS: GUAIFENESIN ER 600 MG TABLET PO SCH ×2 (09:12→21:10)
[2018-01-22] MEDS: CLOPIDOGREL 75 MG TABLET PO SCH (09:12)
[2018-01-22] MEDS: CHOLECALCIFEROL 5,000u TAB PO SCH (09:12)
[2018-01-22] MEDS: ASPIRIN 81 MG TABLET CHEW PO SCH (09:17)
[2018-01-22 12:09] VITALS: BP 83/40
[2018-01-22] MEDS ORDERED: SODIUM CHLORIDE 0.9%, 500ML IVBOLUS ONE (12:30)
[2018-01-22] MEDS: DEXTROSE 10% 1,000 ML IV SCH (12:49)
[2018-01-22 14:24] VITALS: BP 94/59
[2018-01-22 20:47] VITALS: BP 102/48
[2018-01-22] MEDS: ATORVASTATIN 40 MG TABLET PO SCH (21:09)
[2018-01-23 00:44] VITALS: BP 124/60
[2018-01-23] MEDS: LINEZOLID PMX 600MG/300ML 300 ML IV SCH ×2 (00:53→11:30)
[2018-01-23] MEDS: HEPARIN 5,000 UNITS/ML, 1ML SQ SCH ×3 (02:00→16:54)
[2018-01-23] MEDS: PIPERACILLIN/TAZO/PMX 3.375GM 50 ML IV SCH ×4 (05:06→23:02)
[2018-01-23] MEDS: DEXTROSE 10% 1,000 ML IV SCH (05:06)
[2018-01-23 06:44] VITALS: BP 121/49
[2018-01-23] MEDS: SODIUM CHLORIDE FLUSH 10ML SYR IVF SCH ×2 (09:00→20:59)
[2018-01-23] MEDS: CHOLECALCIFEROL 5,000u TAB PO SCH (09:15)
[2018-01-23] MEDS: ASPIRIN 81 MG TABLET CHEW PO SCH (09:15)
[2018-01-23] MEDS: AMLODIPINE 5 MG TABLET PO SCH (09:15)
[2018-01-23] MEDS: BENAZEPRIL 20 MG TABLET PO SCH (09:15)
[2018-01-23] MEDS: GUAIFENESIN ER 600 MG TABLET PO SCH ×2 (09:15→20:59)
[2018-01-23] MEDS: CLOPIDOGREL 75 MG TABLET PO SCH (09:15)
[2018-01-23] MEDS: BRIMONIDINE TARTRATE OPHTH 0.15%, 5ML EACHEYE SCH (09:19)
[2018-01-23 10:50] LABS: CLOSTRIDIUM DIFFICILE ANTIGEN NEGATIVE; CLOSTRIDIUM DIFFICILE TOXIN NEGATIVE (Negative)
[2018-01-23 12:01] VITALS: BP 121/61
[2018-01-23 20:29] VITALS: BP 140/70
[2018-01-23] MEDS: ATORVASTATIN 40 MG TABLET PO SCH (20:59)
[2018-01-24 00:11] VITALS: BP 148/64
[2018-01-24] MEDS: LINEZOLID PMX 600MG/300ML 300 ML IV SCH ×2 (00:37→11:41)
[2018-01-24] MEDS: HEPARIN 5,000 UNITS/ML, 1ML SQ SCH ×3 (02:01→17:18)
[2018-01-24 05:11] LABS: BASOPHILS # (AUTO) 0.06 x10^3/uL (0-0.1); BASOPHILS % (AUTO) 1 % (0-1); EOSINOPHILS # (AUTO) 0.32 x10^3/uL (0-0.4); EOSINOPHILS % (AUTO) 3 % (1-7); LYMPHOCYTES # (AUTO) 1.18 x10^3/uL (1-3.4); LYMPHOCYTES % (AUTO) 13 % (22-44); MD NO; MEAN CORPUSCULAR HGB CONC 32.7 g/dL (32.4-35.8); MEAN CORPUSCULAR VOLUME 85.7 fL (80-100); MEAN PLATELET VOLUME 8.8 fL (7.4-10.4); MONOCYTES # (AUTO) 0.61 x10^3/uL (0.2-0.8); MONOCYTES % (AUTO) 7 % (2-9); NEUTROPHILS # (AUTO) 7.25 x10^3/uL (1.8-6.8); NEUTROPHILS % (AUTO) 77 % (42-75); PLATELET COUNT 397 x10^3/uL (130-400); RED BLOOD COUNT 3.42 x10^6/uL (3.82-5.3); RED CELL DISTRIBUTION WIDTH 14.4 % (9.6-15.2)
[2018-01-24 05:13] LABS: CHLORIDE 110 mmol/L (98-107)
[2018-01-24] MEDS: PIPERACILLIN/TAZO/PMX 3.375GM 50 ML IV SCH ×4 (05:16→23:04)
[2018-01-24 05:20] LABS: ANION GAP 9 mmol/L (5-15); CALCIUM 8.9 mg/dL (8.5-10.1); CREATININE 1.07 mg/dL (0.55-1.02)
[2018-01-24 06:42] VITALS: BP 151/65
[2018-01-24] MEDS: CLOPIDOGREL 75 MG TABLET PO SCH (08:27)
[2018-01-24] MEDS: BENAZEPRIL 20 MG TABLET PO SCH (08:27)
[2018-01-24] MEDS: ASPIRIN 81 MG TABLET CHEW PO SCH (08:27)
[2018-01-24] MEDS: CHOLECALCIFEROL 5,000u TAB PO SCH (08:27)
[2018-01-24] MEDS: AMLODIPINE 5 MG TABLET PO SCH (08:27)
[2018-01-24] MEDS: SODIUM CHLORIDE FLUSH 10ML SYR IVF SCH ×2 (08:28→20:52)
[2018-01-24] MEDS: BRIMONIDINE TARTRATE OPHTH 0.15%, 5ML EACHEYE SCH (08:28)
[2018-01-24] MEDS: GUAIFENESIN ER 600 MG TABLET PO SCH ×2 (08:28→20:52)
[2018-01-24] MEDS ORDERED: POTASSIUM CHLORIDE 40 MEQ in SODIUM CHLORIDE 0.9% 500 ML IV ONE (09:00)
[2018-01-24 13:02] VITALS: BP 151/63
[2018-01-24] MEDS ORDERED: FLUCONAZOLE 400 MG/200 ML 200 ML IV ONE (17:30)
[2018-01-24 18:48] VITALS: BP 161/67
[2018-01-24] MEDS: ATORVASTATIN 40 MG TABLET PO SCH (20:52)
[2018-01-25] MEDS: LINEZOLID PMX 600MG/300ML 300 ML IV SCH (00:34)
[2018-01-25] MEDS: HEPARIN 5,000 UNITS/ML, 1ML SQ SCH ×2 (01:19→10:52)
[2018-01-25 03:29] VITALS: BP 151/65
[2018-01-25] MEDS: PIPERACILLIN/TAZO/PMX 3.375GM 50 ML IV SCH ×2 (04:18→10:52)
[2018-01-25 05:38] LABS: BASOPHILS # (AUTO) 0.04 x10^3/uL (0-0.1); BASOPHILS % (AUTO) 1 % (0-1); EOSINOPHILS # (AUTO) 0.24 x10^3/uL (0-0.4); EOSINOPHILS % (AUTO) 3 % (1-7); LYMPHOCYTES # (AUTO) 1.33 x10^3/uL (1-3.4); LYMPHOCYTES % (AUTO) 17 % (22-44); MD NO; MEAN CORPUSCULAR HEMOGLOBIN 27.4 pg (27.0-34.8); MEAN CORPUSCULAR HGB CONC 32.1 g/dL (32.4-35.8); MEAN CORPUSCULAR VOLUME 85.4 fL (80-100); MEAN PLATELET VOLUME 8.3 fL (7.4-10.4); MONOCYTES # (AUTO) 0.51 x10^3/uL (0.2-0.8); MONOCYTES % (AUTO) 7 % (2-9); NEUTROPHILS # (AUTO) 5.72 x10^3/uL (1.8-6.8); NEUTROPHILS % (AUTO) 73 % (42-75); PLATELET COUNT 431 x10^3/uL (130-400); RED BLOOD COUNT 3.49 x10^6/uL (3.82-5.3); RED CELL DISTRIBUTION WIDTH 14.6 % (9.6-15.2)
[2018-01-25 05:45] LABS: ALBUMIN 2.6 g/dL (3.4-5.0); ANION GAP 11 mmol/L (5-15); CALCIUM 8.5 mg/dL (8.5-10.1); CHLORIDE 109 mmol/L (98-107)
[2018-01-25 05:48] LABS: ALANINE AMINOTRANSFERASE 24 U/L (12-78); ALKALINE PHOSPHATASE 78 U/L (45-117); BILIRUBIN,TOTAL 0.4 mg/dL (0.2-1.0); CREATININE 1.09 mg/dL (0.55-1.02); TOTAL PROTEIN 6.7 g/dL (6.4-8.2)
[2018-01-25 07:16] VITALS: BP 149/65
[2018-01-25] MEDS: CLOPIDOGREL 75 MG TABLET PO SCH (08:17)
[2018-01-25] MEDS: BENAZEPRIL 20 MG TABLET PO SCH (08:17)
[2018-01-25] MEDS: GUAIFENESIN ER 600 MG TABLET PO SCH (08:17)
[2018-01-25] MEDS: CHOLECALCIFEROL 5,000u TAB PO SCH (08:17)
[2018-01-25] MEDS: ASPIRIN 81 MG TABLET CHEW PO SCH (08:17)
[2018-01-25] MEDS: BRIMONIDINE TARTRATE OPHTH 0.15%, 5ML EACHEYE SCH (08:17)
[2018-01-25] MEDS: AMLODIPINE 5 MG TABLET PO SCH (08:17)
[2018-01-25] MEDS: SODIUM CHLORIDE FLUSH 10ML SYR IVF SCH (08:18)
[2018-01-25] MEDS ORDERED: FLUC200T PO (11:20)
[2018-01-25] MEDS ORDERED: POLY17PO5 PO (11:20)
[2018-01-25] MEDS ORDERED: GUAI600T31 PO (11:20)
[2018-01-25] MEDS ORDERED: AZIT500T5 PO (11:25)
== END 2018-01-25 12:34 | disposition home or self-care (01) | DRG 871 ==
LOC: ED 04:04 → EDIP 04:09 → ED 04:19 → 4NOR 05:34 → 4WST 01-20 18:43 → 4EST 01-21 18:06
PROVIDERS: ADMIT Internal Medicine; ATTEND Internal Medicine
DX: A41.9 Sepsis, unspecified organism (principal); N17.0 Acute kidney failure with tubular necrosis; J69.0 Pneumonitis due to inhalation of food and vomit; G93.40 Encephalopathy, unspecified; J96.91 Respiratory failure, unspecified with hypoxia; R45.851 Suicidal ideations; E11.22 Type 2 diabetes mellitus with diabetic chronic kidney disease; E11.51 Type 2 diabetes mellitus with diabetic peripheral angiopathy without gangrene; E78.5 Hyperlipidemia, unspecified; E86.0 Dehydration; E87.6 Hypokalemia; G31.84 Mild cognitive impairment of uncertain or unknown etiology; I12.9 Hypertensive chronic kidney disease with stage 1 through stage 4 chronic kidney disease, or unspecified chronic kidney disease; R79.89 Other specified abnormal findings of blood chemistry; T40.605A Adverse effect of unspecified narcotics, initial encounter; N18.3 Chronic kidney disease, stage 3 (moderate); Z86.73 Personal history of transient ischemic attack (TIA), and cerebral infarction without residual deficits; Z87.891 Personal history of nicotine dependence; Z82.49 Family history of ischemic heart disease and other diseases of the circulatory system; Z85.89 Personal history of malignant neoplasm of other organs and systems; Z95.820 Peripheral vascular angioplasty status with implants and grafts; Z88.5 Allergy status to narcotic agent; Z79.82 Long term (current) use of aspirin; Z79.899 Other long term (current) drug therapy; Y92.89 Other specified places as the place of occurrence of the external cause
CPT/HCPCS: 36415; 70540; 71045; 71250; 74230; 80048; 80053; 80061; 81001; 81003; 82947; 82962; 83036; 83605; 83735; 84100; 84145; 84439; 84443; 84484; 85025; 87040; 87070; 87205; 87324; 93005; 94640; 99285; G0378; J1450; J1644; J1885; J2020; J2543; J3360; J3480; J3486; J7613; 92523-GN; J0295; J1815; J2060; J2270; J7030; J7040

== ENCOUNTER → 2018-03-01 | Outpatient (CLI) | payer MEDICARE, MEDICAID ==
[~2018-03-01] MED LIST changes: +ATOR40TA PO; +AZIT500T5 PO; +FLUC200T PO; +GUAI600T31 PO; +POLY17PO5 PO
== END | disposition home or self-care (01) ==
LOC: CVU 09:33
PROVIDERS: ATTEND Internal Medicine Cardiovascular Disease
DX: I70.203 Unspecified atherosclerosis of native arteries of extremities, bilateral legs (principal); I10 Essential (primary) hypertension; E11.9 Type 2 diabetes mellitus without complications; E78.5 Hyperlipidemia, unspecified; Z87.891 Personal history of nicotine dependence; Z86.73 Personal history of transient ischemic attack (TIA), and cerebral infarction without residual deficits
CPT/HCPCS: 93922; 93925

== ENCOUNTER 2018-03-06 06:19 | Emergency (ER) | payer MEDICARE, MEDICAID ==
[~2018-03-06] VITALS: Ht 160 cm; Wt 59.0 kg
[2018-03-06] MEDS ORDERED: BENZONATATE 100 MG CAPSULE PO ONE (06:30)
[2018-03-06 06:47] LABS: BASOPHILS # (AUTO) 0.06 x10^3/uL (0-0.1); BASOPHILS % (AUTO) 1 % (0-1); EOSINOPHILS # (AUTO) 0.33 x10^3/uL (0-0.4); EOSINOPHILS % (AUTO) 3 % (1-7); LYMPHOCYTES # (AUTO) 1.26 x10^3/uL (1-3.4); LYMPHOCYTES % (AUTO) 10 % (22-44); MD NO; MEAN CORPUSCULAR HEMOGLOBIN 28.2 pg (27.0-34.8); MEAN CORPUSCULAR HGB CONC 32.3 g/dL (32.4-35.8); MEAN CORPUSCULAR VOLUME 87.1 fL (80-100); MEAN PLATELET VOLUME 9.9 fL (7.4-10.4); MONOCYTES # (AUTO) 0.63 x10^3/uL (0.2-0.8); MONOCYTES % (AUTO) 5 % (2-9); NEUTROPHILS # (AUTO) 9.79 x10^3/uL (1.8-6.8); NEUTROPHILS % (AUTO) 81 % (42-75); PLATELET COUNT 301 x10^3/uL (130-400); RED BLOOD COUNT 4.17 x10^6/uL (3.82-5.3); RED CELL DISTRIBUTION WIDTH 15.5 % (9.6-15.2)
[2018-03-06 06:58] LABS: ALBUMIN 3.5 g/dL (3.4-5.0); ANION GAP 11 mmol/L (5-15); CALCIUM 8.9 mg/dL (8.5-10.1); CHLORIDE 109 mmol/L (98-107); CREATININE 1.48 mg/dL (0.55-1.02)
[2018-03-06 07:51] VITALS: BP 134/61
== END 2018-03-06 07:54 | disposition home or self-care (01) ==
LOC: ED 07:48
DX: R05 Cough (principal); N28.9 Disorder of kidney and ureter, unspecified; D72.829 Elevated white blood cell count, unspecified; I10 Essential (primary) hypertension; E11.9 Type 2 diabetes mellitus without complications
CPT/HCPCS: 36415; 71046; 80048; 82040; 85025; 99285

== ENCOUNTER 2018-09-04 07:55 | Outpatient (CLI) | payer MEDICARE, MEDICAID ==
[~2018-09-04 07:55] MED LIST changes: +AMLO-150 PO; -AMLO5TAB7 PO; -BENA20TA4 PO; +BENA20TA54 PO; -FAMO10TA10 PO; +REGADENOSON 0.4 MG/5 ML SYRINGE ONE; +[UNRECOGNIZED DRUG - CODE] PO
== END 2018-09-04 23:59 | disposition home or self-care (01) ==
LOC: CFH 07:55
PROVIDERS: ATTEND Internal Medicine Cardiovascular Disease
DX: Z02.9 Encounter for administrative examinations, unspecified (principal)
CPT/HCPCS: J2785

== ENCOUNTER → 2018-09-08 | Outpatient (CLI) | payer MEDICARE, MEDICAID ==
[~2018-09-08] MED LIST changes: -REGADENOSON 0.4 MG/5 ML SYRINGE ONE
== END | disposition home or self-care (01) ==
LOC: RAD 11:36
PROVIDERS: ATTEND Internal Medicine Hematology & Oncology
DX: Z45.2 Encounter for adjustment and management of vascular access device (principal); C44.42 Squamous cell carcinoma of skin of scalp and neck
CPT/HCPCS: 36573; C1751

== ENCOUNTER 2018-09-13 12:20 | Outpatient (CLI) | payer MEDICARE, MEDICAID | END 2018-09-13 23:59 | disposition home or self-care (01) | LOC: CFH 12:20 | PROVIDERS: ATTEND Internal Medicine Cardiovascular Disease | DX: I73.9 Peripheral vascular disease, unspecified (principal); I10 Essential (primary) hypertension; E11.9 Type 2 diabetes mellitus without complications; Z79.899 Other long term (current) drug therapy | CPT/HCPCS: 78452; 93017; A9502 ==

== ENCOUNTER 2018-09-21 17:25 | Inpatient (IN) | payer MEDICARE, MEDICAID ==
[~2018-09-21] VITALS: Ht 160 cm; Wt 63.0 kg
--- NOTE | 2018-09-21 17:45 | NUR ---
late entry for 1745 d/t patient care: shipping technician note. pt did not list cp as initial complaint, added to complaint list later in triage process. EKG completed in room.
[2018-09-21] MEDS ORDERED: SODIUM CHLORIDE FLUSH 10ML SYR IVF ONE ×2 (18:00)
[2018-09-21] MEDS ORDERED: SODIUM CHLORIDE 0.9% 1,000ML IVBOLUS ONE ×2 (18:00→23:00)
[2018-09-21] MEDS ORDERED: ACETAMINOPHEN 650 MG/20.3 ML UDC PO ONE (18:00)
[2018-09-21] MEDS ORDERED: ACETAMINOPHEN 325 MG TABLET ONE (18:34)
[2018-09-21 18:35] LABS: BASOPHILS # (AUTO) 0.03 x10^3/uL (0-0.1); BASOPHILS % (AUTO) 0 % (0-1); EOSINOPHILS # (AUTO) 0.35 x10^3/uL (0-0.4); EOSINOPHILS % (AUTO) 2 % (1-7); LYMPHOCYTES # (AUTO) 0.49 x10^3/uL (1-3.4); LYMPHOCYTES % (AUTO) 3 % (22-44); MD NO; MEAN CORPUSCULAR HEMOGLOBIN 27.4 pg (27.0-34.8); MEAN CORPUSCULAR HGB CONC 33.1 g/dL (32.4-35.8); MEAN PLATELET VOLUME 9.9 fL (7.4-10.4); MONOCYTES % (AUTO) 4 % (2-9); NEUTROPHILS % (AUTO) 90 % (42-75); PLATELET COUNT 302 x10^3/uL (130-400); RED BLOOD COUNT 4.44 x10^6/uL (3.82-5.3); RED CELL DISTRIBUTION WIDTH 15.7 % (9.6-15.2)
--- NOTE | 2018-09-21 18:40 | NUR ---
PT RESTLESS IN GURNEY, MUMBLING TO HERSELF AND ALTERNATING SPEAKING IN SPANISH AND ETHIOPIAN. RV'WD POC WITH HER. WARM BLANKETS PROVIDED. PT NOTED TO COUGH AFTER SIPPING WATER.
[2018-09-21] MEDS ORDERED: ACETAMINOPHEN 650 MG/20.3 ML UDC ONE (18:42)
[2018-09-21 18:46] LABS: ALANINE AMINOTRANSFERASE 19 U/L (12-78); ANION GAP 10 mmol/L (5-15); CALCIUM 8.9 mg/dL (8.5-10.1); CHLORIDE 110 mmol/L (98-107)
[2018-09-21 18:50] LABS: ALKALINE PHOSPHATASE 112 U/L (45-117); BILIRUBIN,TOTAL 0.2 mg/dL (0.2-1.0); CREATININE 1.74 mg/dL (0.55-1.02); TROPONIN I < 0.015 ng/mL (0.000-0.045)
[2018-09-21] MEDS ORDERED: SODIUM CHLORIDE 0.9% 1,000 ML IV ONE (19:27)
[2018-09-21] MEDS ORDERED: AZITHROMYCIN 500 MG in SODIUM CHLORIDE 0.9% 250 ML IVPB ONE (19:30)
[2018-09-21] MEDS ORDERED: CEFTRIAXONE PMX 1GM/50ML 50 ML IVPB ONE (19:30)
[2018-09-21] MEDS ORDERED: SODIUM CHLORIDE FLUSH 10ML SYR IVF PRN (19:30)
[2018-09-21] MEDS ORDERED: CEFTRIAXONE PMX 1GM/50ML 50 ML ONE (19:32)
--- NOTE | 2018-09-21 20:20 | NUR ---
LUNCH RN: PT MEDICATED PER EMAR. 5 RIGHTS ADDRESSED. PT RESTING ON GURNEY IN NAD. DENIES ANY NEEDS AT THIS TIME. VITALS STABLE. WILL CONTINUE TO MONITOR.
--- NOTE | 2018-09-21 21:00 | NUR ---
HOSPITALIST WAS IN TO SEE PT. PT CALLED HER PARTNER AND DISCUSSED POC WITH HER.
[2018-09-21] MEDS ORDERED: ACETAMINOPHEN 325 MG TABLET PO PRN (22:00)
[2018-09-21] MEDS ORDERED: ENALAPRILAT 1.25 MG/ML, 2ML IVPush PRN (22:00)
[2018-09-21] MEDS ORDERED: ONDANSETRON 2MG/ML, 2ML IVPush PRN (22:00)
[2018-09-21] MEDS ORDERED: CEFTRIAXONE PMX 1GM/50ML 50 ML IV ONE (22:00)
[2018-09-21] MEDS ORDERED: DIPHENHYDRAMINE 25 MG CAPSULE PO PRN (22:00)
[2018-09-21 22:01] VITALS: BP 105/72
[2018-09-21] MEDS ORDERED: DIAZ5TAB PO (23:38)
[2018-09-22] MEDS: DIAZEPAM 5 MG TABLET PO SCH ×2 (00:22→21:00)
[2018-09-22 01:07] VITALS: BP 103/64
[2018-09-22] MEDS: SODIUM CHLORIDE 0.9% 1,000 ML IV SCH ×2 (02:07→15:39)
[2018-09-22 04:07] LABS: BASOPHILS # (AUTO) 0.01 x10^3/uL (0-0.1); BASOPHILS % (AUTO) 0 % (0-1); EOSINOPHILS # (AUTO) 0.25 x10^3/uL (0-0.4); EOSINOPHILS % (AUTO) 3 % (1-7); LYMPHOCYTES # (AUTO) 0.83 x10^3/uL (1-3.4); LYMPHOCYTES % (AUTO) 9 % (22-44); MD NO; MEAN CORPUSCULAR HEMOGLOBIN 27.6 pg (27.0-34.8); MEAN CORPUSCULAR HGB CONC 33.2 g/dL (32.4-35.8); MEAN PLATELET VOLUME 9.8 fL (7.4-10.4); MONOCYTES # (AUTO) 0.73 x10^3/uL (0.2-0.8); MONOCYTES % (AUTO) 8 % (2-9); NEUTROPHILS # (AUTO) 7.32 x10^3/uL (1.8-6.8); NEUTROPHILS % (AUTO) 80 % (42-75); PLATELET COUNT 248 x10^3/uL (130-400); RED BLOOD COUNT 3.62 x10^6/uL (3.82-5.3); RED CELL DISTRIBUTION WIDTH 15.6 % (9.6-15.2)
[2018-09-22 04:17] LABS: ANION GAP 8 mmol/L (5-15); CALCIUM 7.7 mg/dL (8.5-10.1); CHLORIDE 114 mmol/L (98-107); CREATININE 1.45 mg/dL (0.55-1.02)
[2018-09-22 09:13] VITALS: BP 115/72
[2018-09-22] MEDS: LIDODERM 5% PATCH TD SCH (12:42)
[2018-09-22] MEDS ORDERED: CATHFLO-ALTEPLASE 2 MG/2 ML CATHFLUSH ONE (14:00)
[2018-09-22 14:28] VITALS: BP 157/73
[2018-09-22] MEDS ORDERED: POLYETHYLENE GLYCOL 17 GM PACKET PO PRN (16:30)
[2018-09-22 19:05] VITALS: BP 95/64
[2018-09-22] MEDS: ATORVASTATIN 40 MG TABLET PO SCH (21:09)
[2018-09-22] MEDS: GUAIFENESIN ER 600 MG TABLET PO SCH (21:09)
[2018-09-22] MEDS: CEFTRIAXONE PMX 2GM/50ML 50 ML IV SCH (21:20)
[2018-09-22] MEDS: AZITHROMYCIN 500 MG in SODIUM CHLORIDE 0.9% 250 ML IV SCH (22:07)
[2018-09-23 02:12] VITALS: BP 124/73
[2018-09-23] MEDS: LINAGLIPTIN 5 MG TAB PO SCH (08:23)
[2018-09-23] MEDS: CLOPIDOGREL 75 MG TABLET PO SCH (08:23)
[2018-09-23] MEDS: BENAZEPRIL 20 MG TABLET PO SCH (08:23)
[2018-09-23] MEDS: GUAIFENESIN ER 600 MG TABLET PO SCH ×2 (08:25→21:15)
[2018-09-23] MEDS: ASPIRIN 81 MG TABLET EC PO SCH (08:25)
[2018-09-23 08:26] VITALS: BP 142/67
[2018-09-23] MEDS: BRIMONIDINE TART. OPHTH 0.2%, 5ML EACHEYE SCH (08:26)
[2018-09-23] MEDS: AMLODIPINE 5 MG TABLET PO SCH (08:26)
[2018-09-23 09:29] LABS: BASOPHILS # (AUTO) 0.02 x10^3/uL (0-0.1); BASOPHILS % (AUTO) 0 % (0-1); EOSINOPHILS # (AUTO) 0.19 x10^3/uL (0-0.4); EOSINOPHILS % (AUTO) 3 % (1-7); LYMPHOCYTES # (AUTO) 0.91 x10^3/uL (1-3.4); LYMPHOCYTES % (AUTO) 14 % (22-44); MD NO; MEAN CORPUSCULAR HEMOGLOBIN 26.6 pg (27.0-34.8); MEAN CORPUSCULAR HGB CONC 32.1 g/dL (32.4-35.8); MEAN CORPUSCULAR VOLUME 82.8 fL (80-100); MEAN PLATELET VOLUME 9.9 fL (7.4-10.4); MONOCYTES # (AUTO) 0.74 x10^3/uL (0.2-0.8); MONOCYTES % (AUTO) 11 % (2-9); NEUTROPHILS # (AUTO) 4.77 x10^3/uL (1.8-6.8); NEUTROPHILS % (AUTO) 72 % (42-75); PLATELET COUNT 259 x10^3/uL (130-400); RED BLOOD COUNT 4.31 x10^6/uL (3.82-5.3); RED CELL DISTRIBUTION WIDTH 15.7 % (9.6-15.2)
[2018-09-23 09:35] LABS: ANION GAP 6 mmol/L (5-15); CALCIUM 9.2 mg/dL (8.5-10.1); CHLORIDE 112 mmol/L (98-107); CREATININE 1.12 mg/dL (0.55-1.02)
[2018-09-23] MEDS: LIDODERM 5% PATCH TD SCH (13:27)
[2018-09-23 13:30] VITALS: BP 117/48
[2018-09-23 20:54] VITALS: BP 143/72
[2018-09-23] MEDS ORDERED: DIAZEPAM 5 MG TABLET PO PRN (21:00)
[2018-09-23] MEDS: ATORVASTATIN 40 MG TABLET PO SCH (21:10)
[2018-09-23] MEDS: CEFTRIAXONE PMX 2GM/50ML 50 ML IV SCH (21:10)
[2018-09-23] MEDS: AZITHROMYCIN 500 MG in SODIUM CHLORIDE 0.9% 250 ML IV SCH (22:14)
[2018-09-24 01:59] VITALS: BP 157/73
[2018-09-24] MEDS ORDERED: GUAIFENESIN/DM 200-20MG, 10ML UDC PO ONE (05:00)
[2018-09-24 06:03] VITALS: BP 148/97
[2018-09-24] MEDS: CLOPIDOGREL 75 MG TABLET PO SCH (08:32)
[2018-09-24] MEDS: LINAGLIPTIN 5 MG TAB PO SCH (08:32)
[2018-09-24] MEDS: BENAZEPRIL 20 MG TABLET PO SCH (08:32)
[2018-09-24] MEDS: AMLODIPINE 5 MG TABLET PO SCH (08:33)
[2018-09-24] MEDS: GUAIFENESIN ER 600 MG TABLET PO SCH (08:33)
[2018-09-24] MEDS: BRIMONIDINE TART. OPHTH 0.2%, 5ML EACHEYE SCH (08:33)
[2018-09-24] MEDS: ASPIRIN 81 MG TABLET EC PO SCH (08:33)
[2018-09-24] MEDS ORDERED: BENZONATATE 100 MG CAPSULE PO ONE (10:00)
[2018-09-24] MEDS ORDERED: CEFD300C37 PO (10:06)
[2018-09-24] MEDS ORDERED: DOXY100T PO (10:06)
[2018-09-24] MEDS ORDERED: BENZ100C PO (10:06)
== END 2018-09-24 11:31 | disposition home health service (06) | DRG 871 ==
LOC: ED 18:50 → EDIP 19:27 → 3NE 21:54
PROVIDERS: ADMIT Family Medicine; ATTEND Family Medicine
DX: A41.9 Sepsis, unspecified organism (principal); J96.01 Acute respiratory failure with hypoxia; J69.0 Pneumonitis due to inhalation of food and vomit; R65.21 Severe sepsis with septic shock; J98.11 Atelectasis; E11.22 Type 2 diabetes mellitus with diabetic chronic kidney disease; E11.51 Type 2 diabetes mellitus with diabetic peripheral angiopathy without gangrene; I12.9 Hypertensive chronic kidney disease with stage 1 through stage 4 chronic kidney disease, or unspecified chronic kidney disease; N18.3 Chronic kidney disease, stage 3 (moderate); T45.1X5A Adverse effect of antineoplastic and immunosuppressive drugs, initial encounter; E86.0 Dehydration; R13.10 Dysphagia, unspecified; Z87.891 Personal history of nicotine dependence; Z88.5 Allergy status to narcotic agent; Z88.8 Allergy status to other drugs, medicaments and biological substances
CPT/HCPCS: 36415; 71045; 78582; 80048; 80053; 83605; 84145; 84484; 85025; 85379; 87040; 93005; 96365; 96366; G0378; J0456; J0696; A9540; A9558; C9898; J7030; J7050

== ENCOUNTER 2018-12-22 13:41 | Outpatient (CLI) | payer MEDICARE, MEDICAID | END 2018-12-22 23:59 | disposition home or self-care (01) | LOC: CFH 13:41 | PROVIDERS: ATTEND Emergency Medicine | DX: K57.30 Diverticulosis of large intestine without perforation or abscess without bleeding (principal); J47.9 Bronchiectasis, uncomplicated; R91.8 Other nonspecific abnormal finding of lung field; D73.89 Other diseases of spleen; M85.88 Other specified disorders of bone density and structure, other site; I70.0 Atherosclerosis of aorta; R59.0 Localized enlarged lymph nodes; N85.8 Other specified noninflammatory disorders of uterus | CPT/HCPCS: 74176 ==

== ENCOUNTER 2019-01-02 07:58 | Outpatient (CLI) | payer MEDICARE, MEDICAID | END 2019-01-02 23:59 | disposition home or self-care (01) | LOC: CFH 07:58 | PROVIDERS: ATTEND Internal Medicine | DX: C76.0 Malignant neoplasm of head, face and neck (principal); R91.8 Other nonspecific abnormal finding of lung field | CPT/HCPCS: 71250 ==

== ENCOUNTER 2019-05-03 10:50 | Day surgery (SDC) | payer MEDICARE, MEDICAID ==
[~2019-05-03] VITALS: Ht 160 cm; Wt 64.0 kg
[~2019-05-03 10:50] MED LIST changes: +AZIT500T10 PO; -AZIT500T5 PO; -BENA10TA4 PO; +BENA10TA59 PO; +BENZ100C PO; +CEFD300C37 PO; +DOXY100T PO; +FAMO10TA10 PO; -[UNRECOGNIZED DRUG - CODE] PO
[2019-05-03 11:36] VITALS: BP 115/70
[2019-05-03] MEDS ORDERED: LEVO25TA4 PO (11:41)
[2019-05-03] MEDS ORDERED: LIDOCAINE 1%, 10ML ONE (12:46)
[2019-05-03] MEDS ORDERED: VISIPAQUE 270 MG/ML, 50ML BOTTLE ONE (13:00)
[2019-05-03] MEDS ORDERED: HEPARIN 1,000 UNITS/ML, 10ML ONE (14:15)
[2019-05-03] MEDS ORDERED: FLUMAZENIL 0.1 MG/1 ML, 5ML ONE (14:15)
[2019-05-03] MEDS ORDERED: MIDAZOLAM 1 MG/ML, 5ML ONE (14:15)
[2019-05-03] MEDS ORDERED: FENTANYL PF 100 MCG/2ML ONE (14:15)
[2019-05-03] MEDS ORDERED: NALOXONE 1 MG/ML, 2ML ONE (14:15)
[2019-05-03] MEDS ORDERED: PROTAMINE SULFATE 10 MG/ML, 25ML ONE (14:15)
[2019-05-03] MEDS ORDERED: hydrALAzine 20 MG/ML, 1ML ONE (15:46)
[2019-05-03] MEDS ORDERED: ACETAMINOPHEN 500 MG TABLET PO PRN (17:30)
[2019-09-10] MEDS ORDERED: ATOR40TA PO (17:04)
[2019-09-10] MEDS ORDERED: MAGN400T36 PO (17:04)
[2019-09-14] MEDS ORDERED: POLY17PO5 PO (14:50)
[2019-09-14] MEDS ORDERED: GABA300C10 PO (14:50)
[2019-09-14] MEDS ORDERED: LIDO700A20 TD (14:50)
[2019-09-14] MEDS ORDERED: INSU100I11 SQ-INSULIN (14:50)
[2019-09-14] MEDS ORDERED: HYDR-3245 PO (14:50)
[2019-09-14] MEDS ORDERED: Lidoderm Remove Patch XX (14:50)
[2019-09-14] MEDS ORDERED: LINE600T15 PO (14:50)
== END 2019-05-03 17:55 | disposition home or self-care (01) ==
LOC: OUT 10:50
PROVIDERS: ATTEND Internal Medicine Cardiovascular Disease
DX: I70.213 Atherosclerosis of native arteries of extremities with intermittent claudication, bilateral legs (principal); I10 Essential (primary) hypertension; E11.9 Type 2 diabetes mellitus without complications; Z88.5 Allergy status to narcotic agent; Z99.81 Dependence on supplemental oxygen
CPT/HCPCS: 37225; 75630; 99156; 99157; C1714; C1725; C1760; C1769; C1884; C1894; C2623; J0360; J1644; J2250; J3010; Q9966; 75710; J2720; J2310

== ENCOUNTER 2019-08-08 17:16 | Outpatient (CLI) | payer MEDICARE, MEDICAID ==
[~2019-08-08 17:16] MED LIST changes: +LEVO25TA4 PO
== END 2019-08-08 23:59 | disposition home or self-care (01) ==
LOC: RAD 17:16
PROVIDERS: ATTEND Nurse Practitioner Primary Care
DX: M25.551 Pain in right hip (principal); R60.0 Localized edema

== ENCOUNTER 2019-10-30 09:52 | Outpatient (CLI) | payer MEDICARE, MEDICAID ==
[~2019-10-30 09:52] MED LIST changes: +GABA300C10 PO; +HYDR-3245 PO; +INSU100I11 SQ-INSULIN; +LIDO700A20 TD; +LINE600T15 PO; +Lidoderm Remove Patch XX; +MAGN400T36 PO
== END 2019-10-30 23:59 | disposition home or self-care (01) ==
LOC: CFH 09:52
PROVIDERS: ATTEND Internal Medicine
DX: J18.9 Pneumonia, unspecified organism (principal); J47.9 Bronchiectasis, uncomplicated; J98.4 Other disorders of lung; R91.1 Solitary pulmonary nodule
CPT/HCPCS: 71250

== ENCOUNTER → 2019-12-25 | Outpatient (CLI) | payer MEDICARE, MEDICAID | END | disposition home or self-care (01) | LOC: CFH 09:45 | PROVIDERS: ATTEND Internal Medicine | DX: R91.8 Other nonspecific abnormal finding of lung field (principal) | CPT/HCPCS: 71250 ==

== ENCOUNTER → 2020-10-01 | Outpatient (CLI) | payer MEDICARE, MEDICAID ==
[~2020-10-01] MED LIST changes: -HYDR-3245 PO; +HYDR1TAB53 PO
== END | disposition home or self-care (01) ==
LOC: CFH 10:02
PROVIDERS: ATTEND Internal Medicine
DX: R91.8 Other nonspecific abnormal finding of lung field (principal); J98.4 Other disorders of lung; J47.9 Bronchiectasis, uncomplicated
CPT/HCPCS: 71250